=== PATIENT | male | born 1960 | race Caucasian/White ===

== ENCOUNTER 2019-10-02 08:50 | Day surgery (SDC) | payer MEDICARE ==
[2019-09-30 10:44] LABS: HEMATOCRIT 45.2 % (42.0-54.0); HEMOGLOBIN 15.4 g/dL (13.5-17.5); MCH 31.8 pg (26.0-34.0); MCHC 34.1 g/dL (31.0-37.0); MCV 93.2 fL (80.0-100.0); MEAN PLATELET VOLUME 9.5 fL (7.4-10.4); RBC 4.85 10x6/uL (4.20-6.10); RDW 12.8 % (11.5-14.5)
[~2019-10-02] VITALS: Ht 172.7 cm; Wt 108.9 kg
[~2019-10-02 08:50] MED LIST: AMBIEN10 MG PO; BACLOFEN20 M1 PO; BAYER CHEWABLE81 MG PO; BENADRYL50 MG PO; CENTRUM MEN'S1 EACH PO; EFFEXOR75 MG PO; FISH OIL 1,0001 CA1 PO; HYDROCODON-ACE1 EA10 PO; MELATONIN10 M1 PO; MIRALAX17 GM PO; MOBIC7.5 MG PO; MUCINEX600 MG PO; PROTONIX40 MG PO; SINGULAIR10 MG PO; TRAZODONE HCL150 MG PO; XARELTO20 MG PO; ZOCOR40 MG PO; ZYLOPRIM100 MG PO
[2019-10-02 10:02] VITALS: BP 113/76; Ht 172.7 cm; Wt 108.9 kg
--- NOTE | 2019-10-02 13:22 | NUR ---
1230-REC'D REPORT FROM RAO FREEMAN. PT IS AWAKE AND ALERTED, UP AMBULATING. VSS. DENIES PAIN. URINATED IN RECOVERY. FULL LIQUID TRAY AT BEDSIDE.
--- NOTE | 2019-10-02 13:22 | NUR ---
1310-REMOVED IV FROM RIGHT ARM WITH CATH INTACT,DISPOSED INTO SHARPS,COVERED SITE WITH GUAZE.SECURED WITH MEDIPORE TAPE.DENIES PAIN. VSS
--- NOTE | 2019-10-02 13:26 | NUR ---
1315-DISCHARGE CRITERIA MET. REVIEWED POST OPERATIVE INSTRUCTIONS AND FOLLOW UP APPOINTMENT. VERBALIZED UNDERSTANDING. ESCORTED OUT VIA W/C BY STAFF WITH RIDE AWAITING.
--- NOTE | 2019-10-02 14:49 | OP ---
PATIENT NAME: CORY BETTS JR MEDICAL RECORD: [id number] :58 LOCATION:[facility] ADMISSION DATE: SURGEON: FRED ROWLEY MD DATE OF OPERATION: 10/02/2019 SURGEON: Fred Rowley MD ANESTHESIA: General anesthesia by Daniele Mccray CRNA. DIAGNOSES: Obstructive BPH and right hydrocele. PROCEDURE: UroLift times 6 (4 in box configuration around the bladder neck and 2 at the verumontanum level). Right hydrocelectomy, Jaboulay procedure. FINDINGS: On cystoscopy, tight bladder neck and obstructive bilateral lateral lobes. Single ureteral orifices bilaterally with a trabeculated bladder. No bladder tumors. Right hydrocele. ESTIMATED BLOOD LOSS: None. CLINICAL HISTORY: This is a 59-year-old male, who has a right-sided hydrocele which has been growing for the several months. He also has obstructive voiding symptoms for several years. His IPSS score is 27 and quality of life score is 6 with tamsulosin. He comes to have the UroLift procedure done and also a right hydrocelectomy. HE IS ALLERGIC TO IVP DYE. He was given Ancef sterilization tech to the OR. DESCRIPTION OF PROCEDURE: The patient was placed in supine position on the OR table. He was then given induction of general anesthesia. He was then placed into the lithotomy position and prepped and draped. The UroLift scope was introduced. The lateral lobes of the prostate are obstructive. The bladder neck, is also tight. The UroLift units were placed at the anterolateral sulcus level with 1 unit being placed on each side. First, we went 1.5 cm distal to the bladder. One unit was placed on each side at the anterolateral sulcus here. Then, at the verumontanum 1 unit was placed on each side at the anterolateral sulcus. Coming back in with the kiss machine operator, the bladder neck was still obstructed. We then placed at the mid urethral level, 1.5 cm distal to the bladder neck, one more unit on each side. This opened up the bladder neck in the box configuration. He now had a wide open prostatic urethra. The bladder was left partly full in order to allow for a voiding trial. The patient's legs were then placed back down on to the table. He was reprepped and redraped. A 2 cm incision was made in the median rhaphe of the scrotum. We went down through the dartos fascia with a #15 blade. The tunica vaginalis of the hydrocele was incised and opened up using Metzenbaum scissors. The hydrocele fluid was drained out. The testicle was then expressed out of the right hemiscrotum. There is quite redundant tunica vaginalis, which formed the hydrocele sac. This was trimmed using the Bovie. This will still allow us to suture the tunica vaginalis flaps to itself posterior to the cord. This was done using running 3-0 Vicryl. A small appendix testis was seen and this was excised using the Bovie. The testicle was then placed back into its hemiscrotum. Any bleeding that we saw was attended to with the Bovie earlier. We then sutured the scrotal skin back in 2 layers. The first layer was of running 3-0 Vicryl, taking the dartos muscle back together. The skin was closed using a simple interrupted 4-0 Monocryl. Fluffs and mesh panties were applied. OPERATIVE REPORT [id number] CORY BETTS JR The patient will be seen back in followup in 2 weeks' time. TRANSINT:[id number] Voice Confirmation ID: [id number] DOCUMENT ID: [id number] FRED ROWLEY MD at 1449 CC: [id number] DICTATION DATE: 10/02/19 1201 ADVANCE SCOUT: 10/02/19 1446 [facility] 10/02/19 [facility] [address] [place] [address]
[2019-10-02 21:40] VITALS: BP 121/78
--- NOTE | 2019-10-02 21:45 | NUR ---
RCVD TO ROOM VIA HOSP STAFF AND FAMILY AT SIDE. ALERT AND ORIENTED. VSS. WILL CONTINUE TO OBSERVE.
--- NOTE | 2019-10-02 22:15 | NUR ---
VSS. HOLDING LIQUIDS WITHOUT DIFFICULTY. DISCHARGED WITH FAMILY ASSIST.
--- NOTE | 2019-10-03 08:43 | OP ---
PATIENT NAME: CORY BETTS JR MEDICAL RECORD: [id number] :56 LOCATION:[facility] ADMISSION DATE: SURGEON: FRED ROWLEY MD DATE OF OPERATION: 10/02/2019 SURGEON: Fred Rowley MD ANESTHESIA: TIVA by Monika Padron CRNA. DIAGNOSIS: Postoperative urinary retention. PROCEDURE: Cystoscopy, bladder clot evacuation, Moses catheter insertion. FINDINGS: One small blood clot in the bladder. The patient voided as soon as he was sedated. ESTIMATED BLOOD LOSS: None. CLINICAL HISTORY: This is a 59-year-old male, who had the UroLift procedure as well as a hydrocele repair this morning. He was able to void and he was discharged home. Thereafter, he called and said he was unable to void. His daughter works in this hospital as a metal room dental technician. She tried to catheterize him at home without success. He was therefore brought back for cystoscopy. He also claims that he is passing some blood clots. Therefore, we will perform a cystoscopy to evacuate any clots in case he has clot urinary retention. Since he was given Levaquin earlier today, he does not need another dose of antibiotics. DESCRIPTION OF PROCEDURE: The patient was given IV sedation. He was placed into lithotomy position and prepped and draped. A 21-Namibian cystoscope with 30-degree lens was used for visualization. There is a tiny blood clots in the penile urethra, which passed out. Going into the bladder, there were no blood clots that I could see. The prostatic urethra was a bit edematous from the procedure this morning. The bladder was emptied through the scope. Through the scope sheath,a Sensor wire was placed into the bladder. The cystoscope sheath was then removed. A Councill tip 20-Namibian Moses catheter was then inserted over the wire into the bladder. The balloon was inflated with 5 cc of sterile water and then the Sensor wire was removed entirely. The catheter was put to bag drainage and the patient was brought to the recovery room. He will be sent home with a Moses catheter and I will see him next week to have the Moses catheter removed for a voiding trial. TRANSINT:[id number] Voice Confirmation ID: [id number] DOCUMENT ID: [id number] FRED ROWLEY MD at 0843 CC: [id number] DICTATION DATE: 10/02/192039 COMPUTER ANALYST: 10/02/192221 [facility] 10/02/19 [place] [id number] [place] [id number]
== END 2019-10-02 22:15 | disposition home or self-care (01) ==
LOC: D.OPS 08:50 → D.PAN 10:35 → D.OPS 11:05 → D.PAN 12:00 → D.OPS 13:15 → D.MS 21:38 → D.OPS 22:15
PROVIDERS: Anesthesiology; ATTEND Urology
DX: N99.89 Other postprocedural complications and disorders of genitourinary system (principal); N40.0 Benign prostatic hyperplasia without lower urinary tract symptoms; N43.3 Hydrocele, unspecified
CPT/HCPCS: 52001; 55040; C9740

== ENCOUNTER 2021-02-18 05:49 | Day surgery (SDC) | payer MEDICARE ==
[~2021-02-18] VITALS: Ht 172.7 cm; Wt 106.6 kg
[2021-02-18 07:18] VITALS: BP 117/65; Ht 172.7 cm; Wt 106.6 kg
--- NOTE | 2021-02-18 11:53 | NUR ---
1140 - IV D/C'D AND PATIENT UP TO BATHROOM TO VOID AND DRESS FOR DISCHARGE.
--- NOTE | 2021-02-18 15:41 | OP ---
PATIENT NAME: CORY MADRIGAL JR MEDICAL RECORD: [id number] :58 LOCATION:[facility] ADMISSION DATE: SURGEON: NASIM DING DO DATE OF OPERATION: 02/18/2021 PROCEDURE PERFORMED: Left endoscopic carpal tunnel release, left cubital tunnel release, and olecranon bursectomy with bone spur removal. PREOPERATIVE DIAGNOSES: Left carpal and cubital tunnel syndrome and olecranon bursitis with bone spur on the olecranon. POSTOPERATIVE DIAGNOSES: Left carpal and cubital tunnel syndrome and olecranon bursitis with bone spur on the olecranon. INDICATIONS: Mr. Madrigal is a 60-year-old male who has had left elbow pain for quite some time. X-rays were taken in my office. It seemed to have a large bone spur off of his olecranon and a very swollen bursa. He had a nerve conduction showing cubital and carpal tunnel. He had been suffering for quite some time with that. I informed him that we could do the cubital and carpal, and removed the bursa and a bone spur all at the same time. He is okay with that. He is aware of risks including infection, damage to the ulnar and median nerve, bleeding, continued pain, loss of motion of the elbow, recurrence of olecranon bursitis, blood clots and even and he signed the consent. SURGEON: Nasim Ding DO DESCRIPTION OF PROCEDURE: The patient was taken to the operative suite, laid in supine position. After given a block by anesthesia in the preoperative area, given light sedation and the left upper extremity was prepped and draped in sterile fashion. Timeout was performed. Everyone was in agreement with the correct side, site, patient and procedure. He was given 2 grams of Ancef. The left upper extremity was exsanguinated with an Esmarch and tourniquet was inflated to 250 mmHg. It was up for 30 minutes. I then made an incision centered over the palmaris longus tendon and made blunt dissection down to the median nerve at the volar wrist, released the fascia and the incision from distal to proximal on top of the median nerve. I then went to the carpal tunnel with dilators and then he had quite a bit of fat on the transverse carpal ligament. It took some time cleaning that off. I then went in with a sheath and the camera. Once I got good visualization of the transverse carpal ligament, raised it up the blade and transected the transverse carpal ligament. Fat then herniated down into the carpal tunnel site. I then removed the instruments and used the long end of the Ragnell and scissors to make sure there was no remaining fibers of the transverse carpal ligament. I then went to the elbow, flexed it, made an incision in the posterior elbow, made careful dissection down to the olecranon bursa. I then dissected the bursa off the large bone spur and then went over to the ulnar nerve and released it proximally and distally. It was quite severely compressed also at the elbow. Once that was fully released, I then removed the bone spur and all the gouty tophi could from the elbow as well as the bursa. I then let the tourniquet down. Any bleeding was cauterized with the bipolar. Marco Wallace, certified surgical assurance assistant then closed the skin with 2-0 Vicryl in inverted interrupted fashion and placed supine on the elbow. After I had injected with 0.25% Marcaine with epinephrine 10 mL proximally in each site and then closed the carpal tunnel with 5-0 Monocryl inverted fashion. I placed on Steri-Strips, Adaptic, 4 x 4, cast padding, and then an Fady wrap from the hand all the way up past the elbow. He OPERATIVE REPORT [id number] CORY MADRIGAL JR was then awakened and taken to recovery in stable condition. ESTIMATED BLOOD LOSS: Minimal. COMPLICATIONS: None. TOURNIQUET TIME: 30 minutes. TRANSINT:[id number] Voice Confirmation ID: [id number] DOCUMENT ID: [id number] NASIM DING DO at 1541 CC: [id number] DICTATION DATE: 02/18/21 1014 [facility] CUTTER SYNTHETIC CLOTH: 02/18/21 1411 [facility] 02/18/21 [facility] [address] [place] [address]
== END 2021-02-18 12:00 | disposition home or self-care (01) ==
LOC: D.OPS 05:49
PROVIDERS: ATTEND Orthopaedic Surgery
DX: G56.02 Carpal tunnel syndrome, left upper limb (principal); G56.22 Lesion of ulnar nerve, left upper limb; M70.22 Olecranon bursitis, left elbow; M25.522 Pain in left elbow